=== PATIENT | male | born 1955 | race Two or more races ===

== ENCOUNTER 2024-02-19 23:18 | Emergency (ER) | payer OTHER ==
[~2024-02-19] VITALS: Ht 165.1 cm; Wt 77.1 kg
[2024-02-20] MEDS ORDERED: ONDANSETRON 4 MG TAB.RAPDIS ONE (00:28)
[2024-02-20] MEDS ORDERED: MORPHINE SULFATE INJ 4 MG/ML DISP.SYRIN ONE (00:28)
[2024-02-20] MEDS: MORPHINE SULFATE INJ 2 MG/ML DISP.SYRIN IM ONE (00:35)
[2024-02-20] MEDS: ONDANSETRON 4 MG TAB.RAPDIS PO ONE (00:35)
[2024-02-20] MEDS: PROPOFOL 200 MG/20 ML VIAL IV ONE (02:00)
[2024-02-20] MEDS ORDERED: PROPOFOL 20 ML IV ONE (02:03)
[2024-02-20] MEDS ORDERED: NAPR-1009 PO (04:00)
[2024-02-20 04:11] VITALS: BP 141/81; TEMP 98.7; O2SAT 98
== END 2024-02-20 04:11 | disposition home or self-care (01) ==
LOC: ER 23:29
DX: S53.125A Posterior dislocation of left ulnohumeral joint, initial encounter (principal); S52.045A Nondisplaced fracture of coronoid process of left ulna, initial encounter for closed fracture; W01.0XXA Fall on same level from slipping, tripping and stumbling without subsequent striking against object, initial encounter; Y93.89 Activity, other specified; Y92.89 Other specified places as the place of occurrence of the external cause; Y99.8 Other external cause status
CPT/HCPCS: 99285; 73200; 99152; 73080; 73070; 96372; J2704; J2270; J7030; Q0162; G0500